=== PATIENT | female | born 1995 | race Caucasian/White ===

== ENCOUNTER 2016-09-06 00:42 | Inpatient (IN) | payer MEDICAID ==
[~2016-09-06] VITALS: Ht 160 cm; Wt 73.9 kg
[2016-09-06] MEDS ORDERED: SODIUM CHLORIDE 0.9% 1,000 ML IV ONE (01:00)
[2016-09-06] MEDS ORDERED: ONDANSETRON HCL 4 MG/2 ML VIAL IVP ONE (01:00)
[2016-09-06 01:06] LABS: BASOPHILS % (AUTO) 0.6 % (0.0-2.0); EOSINOPHILS % (AUTO) 0.2 % (1.0-6.0); HEMATOCRIT 41.1 % (36-46); HEMOGLOBIN 13.8 g/dL (12.0-16.0); LYMPHOCYTES # (AUTO) 2.8 K/uL (1.0-4.8); LYMPHOCYTES % (AUTO) 34.2 % (22.0-44.0); MEAN CORPUSCULAR HEMOGLOBIN 30.4 pg (26.0-34.0); MEAN CORPUSCULAR HGB CONC 33.6 G/dL (31.0-37.0); MEAN CORPUSCULAR VOLUME 90 fL (80-100); MONOCYTES # (AUTO) 0.4 K/uL (0.1-1.0); MONOCYTES % (AUTO) 4.9 % (2.0-9.0); NEUTROPHILS # (AUTO) 4.9 K/uL (1.8-7.7); NEUTROPHILS % (AUTO) 60.1 % (40.0-70.0); PLATELET COUNT (AUTO) 363 K/uL (150-450); RED BLOOD CELL COUNT(AUTO) 4.55 MIL/uL (4.00-5.20); RED CELL DISTRIBUTION WIDTH 12.2 % (11.5-14.5); WHITE BLOOD COUNT (AUTO) 8.2 K/uL (4.5-11.0)
[2016-09-06 01:14] LABS: ANION GAP 11 mmol/L (8-16); CALCIUM, TOTAL 8.7 mg/dL (8.8-10.5); CARBON DIOXIDE 27 mmol/L (22-29); CHLORIDE 104 mmol/L (98-107); CREATININE 0.73 mg/dL (0.60-1.30); GLOMERULAR FILTR. RATE CALC > 60 mL/min (>60); POTASSIUM 3.4 mmol/L (3.5-5.1); SODIUM SERUM 142 mmol/L (136-145); UREA NITROGEN, BLOOD 7 mg/dL (7-18)
[2016-09-06] MEDS ORDERED: LIDOCAINE HCL BUFFERED 1% 20 ML VIAL INJ ONE (01:15)
[2016-09-06 01:22] LABS: SALICYLATE < 2.8 mg/dL (2.8-20.0)
[2016-09-06 01:27] LABS: ACETAMINOPHEN 10 mcg/mL (10-30); ALANINE AMINOTRANSFERASE 22 U/L (12-78); ALBUMIN 4.2 g/dL (3.4-5.0); ASPARTATE AMINOTRANSFERASE 18 U/L (15-37); BILIRUBIN,TOTAL 0.4 mg/dL (0.1-1.0); TOTAL PROTEIN, SERUM 8.1 g/dL (6.4-8.2)
[2016-09-06] MEDS ORDERED: BACITRACIN 0.9 GM PACKET OINTMENT TP ONE (01:30)
[2016-09-06] MEDS ORDERED: POTASSIUM CHLORIDE 10% 40 MEQ/30 ML LIQUID UDCUP PO ONE (01:45)
[2016-09-06] MEDS ORDERED: ZOLPIDEM TARTRATE 10 MG TABLET PO PRN (02:15)
[2016-09-06] MEDS ORDERED: LORazepam 2 MG TABLET PO PRN (02:15)
[2016-09-06] MEDS ORDERED: HALOPERIDOL 5 MG TABLET PO PRN (02:15)
[2016-09-06 08:04] LABS: APPEARANCE,URINE CLEAR (CLEAR); GLUCOSE, URINE (UA) NEGATIVE (NEGATIVE); KETONES,URINE NEGATIVE (NEGATIVE); LEUKOCYTE ESTERASE ,URINE NEGATIVE (NEGATIVE); OCCULT BLOOD,URINE NEGATIVE (NEGATIVE); PH,URINE 5.5 (5.0-8.0); PROTEIN,URINE NEGATIVE (NEGATIVE)
[2016-09-06 08:05] LABS: ADD UA MICROSCOPIC NO
[2016-09-06 18:34] VITALS: BP 115/73
[2016-09-06] MEDS ORDERED: IBUPROFEN 400 MG TABLET PO PRN (19:45)
[2016-09-06] MEDS ORDERED: ACETAMINOPHEN 325 MG TABLET PO PRN (19:45)
[2016-09-07 05:29] LABS: HEMOGLOBIN A1C 5.3 % (4.5-6.2)
[2016-09-07 05:41] VITALS: BP 105/64
[2016-09-07 05:46] LABS: CHOL/HDL RATIO 2.4 (3.9-5.7); THYROID STIMULATING HORMONE 1.19 uIU/mL (0.36-3.74)
[2016-09-07 08:01] VITALS: BP 109/61
[2016-09-07 15:11] VITALS: BP 123/82
[2016-09-07 16:00] VITALS: BP 115/79
[2016-09-08 02:00] VITALS: BP 117/67
[2016-09-08 08:41] VITALS: BP 102/60
[2016-09-08] MEDS: BACITRACIN 28.4 GM OINTMENT TP SCH ×2 (09:38→18:13)
[2016-09-08] MEDS ORDERED: INFLUENZA VIRUS VACCINE QVS 2016-17 (3YR+)/PF 60 MCG/0.5 ML SYRINGE IM ONE (11:15)
[2016-09-08 16:10] VITALS: BP 124/86
[2016-09-09 02:10] VITALS: BP 105/65
[2016-09-09 08:34] VITALS: BP 115/64
[2016-09-09] MEDS: BACITRACIN 28.4 GM OINTMENT TP SCH ×2 (09:39→17:02)
[2016-09-09 16:35] VITALS: BP 117/67
[2016-09-10 03:24] VITALS: BP 102/60
[2016-09-10 08:32] VITALS: BP 117/73
[2016-09-10] MEDS: BACITRACIN 28.4 GM OINTMENT TP SCH (08:54)
== END 2016-09-10 10:30 | disposition home or self-care (01) | DRG 881 ==
LOC: EMS 00:42 → EDBD 00:42 → AHU 16:49 → EMS 17:02 → B2S 09-07 14:19
PROVIDERS: ADMIT Psychiatry & Neurology Psychiatry; ATTEND Psychiatry & Neurology Psychiatry
PROC: 0HQEXZZ Repair Left Lower Arm Skin, External Approach (ICD-10-PCS; principal; 2016-09-06)
DX: F32.9 Major depressive disorder, single episode, unspecified (principal); R45.851 Suicidal ideations; E87.6 Hypokalemia; X78.9XXA Intentional self-harm by unspecified sharp object, initial encounter; F10.129 Alcohol abuse with intoxication, unspecified; Y90.2 Blood alcohol level of 40-59 mg/100 ml; S61.512A Laceration without foreign body of left wrist, initial encounter; Y93.89 Activity, other specified; Y92.89 Other specified places as the place of occurrence of the external cause; Y99.8 Other external cause status; Z91.5 Personal history of self-harm; Z28.21 Immunization not carried out because of patient refusal
CPT/HCPCS: 12002; 83036; 84132; 84443; 93005; 96361; 96374; 99285; A0429; G0480; G0481; J2405; J3490; J7030

== ENCOUNTER 2018-10-16 23:55 | Inpatient (IN) | payer MEDICAID, OTHER ==
[~2018-10-16] VITALS: Ht 167.6 cm; Wt 85.5 kg
[2018-10-17] MEDS ORDERED: SODIUM CHLORIDE 0.9% 1,000 ML IV ONE ×3 (00:30→03:30)
[2018-10-17 00:37] LABS: BASOPHILS % (AUTO) 0.6 % (0.0-2.0); EOSINOPHILS % (AUTO) 0.4 % (1.0-6.0); HEMATOCRIT 39.2 % (36-46); HEMOGLOBIN 13.6 g/dL (12.0-16.0); LYMPHOCYTES # (AUTO) 2.5 K/uL (1.0-4.8); LYMPHOCYTES % (AUTO) 45.7 % (22.0-44.0); MEAN CORPUSCULAR HEMOGLOBIN 30.8 pg (26.0-34.0); MEAN CORPUSCULAR HGB CONC 34.7 G/dL (31.0-37.0); MEAN CORPUSCULAR VOLUME 89 fL (80-100); MONOCYTES # (AUTO) 0.3 K/uL (0.1-1.0); NEUTROPHILS # (AUTO) 2.6 K/uL (1.8-7.7); NEUTROPHILS % (AUTO) 47.3 % (40.0-70.0); PLATELET COUNT (AUTO) 361 K/uL (150-450); RED BLOOD CELL COUNT(AUTO) 4.42 MIL/uL (4.00-5.20); RED CELL DISTRIBUTION WIDTH 12.7 % (11.5-14.5)
[2018-10-17 00:49] LABS: ANION GAP 10 mmol/L (8-16); CALCIUM, TOTAL 8.6 mg/dL (8.8-10.5); CARBON DIOXIDE 25 mmol/L (22-29); CHLORIDE 103 mmol/L (98-107); CREATININE 0.71 mg/dL (0.60-1.30); GLOMERULAR FILTR. RATE CALC > 60 mL/min (>60); GLUCOSE,RANDOM 113 mg/dL (70-110); POTASSIUM 3.3 mmol/L (3.5-5.1); SODIUM SERUM 138 mmol/L (136-145); UREA NITROGEN, BLOOD 8 mg/dL (7-18)
[2018-10-17 01:00] LABS: ALANINE AMINOTRANSFERASE 16 U/L (12-78); ALBUMIN 3.9 g/dL (3.4-5.0); ALKALINE PHOSPHATASE 49 U/L (46-116); ASPARTATE AMINOTRANSFERASE 11 U/L (15-37); BILIRUBIN,TOTAL 0.4 mg/dL (0.1-1.0); HCG,QUANTITATIVE < 1 mIU/mL (0-6); TOTAL PROTEIN, SERUM 7.8 g/dL (6.4-8.2)
[2018-10-17 01:18] LABS: ACETAMINOPHEN 56 mcg/mL (10-30)
[2018-10-17 01:27] LABS: SALICYLATE 0.8 mg/dL (2.8-20.0)
[2018-10-17 01:28] LABS: AMPHET/METH SCREEN,URINE NEGATIVE (NEGATIVE); BARBITURATE SCREEN, URINE NEGATIVE (NEGATIVE); BENZODIAZEPINES SCREEN,URINE NEGATIVE (NEGATIVE); CANNABINOID SCREEN,URINE NEGATIVE (NEGATIVE); COCAINE SCREEN,URINE NEGATIVE (NEGATIVE); METHADONE SCREEN, URINE NEGATIVE (NEGATIVE); OPIATE SCREEN,URINE NEGATIVE (NEGATIVE); PHENCYCLIDINE SCREEN,URINE NEGATIVE (NEGATIVE)
[2018-10-17 01:55] LABS: APPEARANCE,URINE CLEAR (CLEAR); BILIRUBIN,URINE NEGATIVE (NEGATIVE); GLUCOSE, URINE (UA) NEGATIVE (NEGATIVE); KETONES,URINE NEGATIVE (NEGATIVE); LEUKOCYTE ESTERASE ,URINE NEGATIVE (NEGATIVE); NITRATE,URINE NEGATIVE (NEGATIVE); OCCULT BLOOD,URINE SMALL (NEGATIVE); PROTEIN,URINE NEGATIVE (NEGATIVE); UROBILINOGEN,URINE 0.2 mg/dL (<=1.0)
[2018-10-17 02:14] LABS: BACTERIA,URINE None Seen /HPF (None Seen); RBC,URINE 0-2 /HPF (0-2); SQUAMOUS EPITHELIAL CELL,UR Few /LPF (None Seen); WBC,URINE 0-2 /HPF (0-5)
[2018-10-17] MEDS ORDERED: HALOPERIDOL 5 MG TABLET PO PRN (06:15)
[2018-10-17] MEDS ORDERED: LORazepam 2 MG TABLET PO PRN (06:15)
[2018-10-17] MEDS ORDERED: ZOLPIDEM TARTRATE 10 MG TABLET PO PRN (06:15)
[2018-10-17] MEDS ORDERED: ACETAMINOPHEN 325 MG TABLET PO PRN (10:15)
[2018-10-17] MEDS ORDERED: CloNIDine HCL 0.1 MG TABLET PO PRN (10:15)
[2018-10-17] MEDS ORDERED: IBUPROFEN 400 MG TABLET PO PRN (10:15)
[2018-10-17] MEDS ORDERED: MAGNESIUM HYDROXIDE SUSPENSION 30 ML UDCUP PO PRN (10:15)
[2018-10-17] MEDS ORDERED: NICOTINE 14 MG/24 HOUR PATCH TD PRN (10:15)
[2018-10-17] MEDS ORDERED: ALBUTEROL SULFATE HFA 90 MCG/PUFF 8 GM INHALER IH PRN (10:15)
[2018-10-17] MEDS ORDERED: ONDANSETRON HCL 4 MG TABLET PO PRN (10:15)
[2018-10-17] MEDS ORDERED: GuaiFENesin/D-METHORPHAN [SUGAR-FREE] 200-20MG/10 ML SYRUP UDCUP PO PRN (10:15)
[2018-10-17] MEDS ORDERED: PETROLATUM,WHITE 71 GM JELLY TP PRN (10:15)
[2018-10-17] MEDS ORDERED: LOPERAMIDE HCL 2 MG CAPSULE PO PRN (10:15)
[2018-10-17] MEDS ORDERED: MAG HYDROX/AL HYDROX/SIMETH ES 30 ML SUSPENSION UDCUP PO PRN (10:15)
[2018-10-17] MEDS ORDERED: DOCUSATE SODIUM 100 MG CAPSULE PO PRN (10:15)
[2018-10-17 14:01] VITALS: BP 124/91
[2018-10-17 14:23] VITALS: BP 124/91
[2018-10-17 16:00] VITALS: BP 113/69
[2018-10-17 16:22] VITALS: BP 113/69
[2018-10-17 16:41] VITALS: BP 113/69
[2018-10-17] MEDS ORDERED: POTASSIUM CHLORIDE 20 MEQ ER TABLET PO ONE (16:45)
[2018-10-17 20:05] VITALS: BP 121/73
[2018-10-17] MEDS: SERTRALINE HCL 50 MG TABLET PO SCH (21:00)
[2018-10-18] VITALS (7 sets, daily range): BP systolic 106–123; BP diastolic 70–84
[2018-10-18] MEDS: BACITRACIN 28.4 GM OINTMENT TP SCH ×2 (08:46→17:05)
[2018-10-18 08:50] LABS: HEMOGLOBIN A1C 5.4 % (4.5-6.2)
[2018-10-18 09:17] LABS: CHOL/HDL RATIO 3.1 (3.9-5.7); POTASSIUM 4.5 mmol/L (3.5-5.1); THYROID STIMULATING HORMONE 3.07 uIU/mL (0.36-3.74)
[2018-10-18] MEDS: SERTRALINE HCL 50 MG TABLET PO SCH (20:43)
[2018-10-19 06:25] VITALS: BP 108/65
[2018-10-19] MEDS: BACITRACIN 28.4 GM OINTMENT TP SCH ×2 (08:09→16:46)
[2018-10-19 08:32] VITALS: BP 110/54
[2018-10-19 16:00] VITALS: BP 100/59
[2018-10-19 16:33] VITALS: BP 100/59
[2018-10-19] MEDS: SERTRALINE HCL 50 MG TABLET PO SCH (20:09)
[2018-10-20 00:07] VITALS: BP 99/60
[2018-10-20 00:09] VITALS: BP 99/60
[2018-10-20 08:37] VITALS: BP 124/76
[2018-10-20] MEDS: BACITRACIN 28.4 GM OINTMENT TP SCH (09:11)
[2018-10-20] MEDS ORDERED: SERT50TA12 PO (10:51)
== END 2018-10-20 12:45 | disposition home or self-care (01) | DRG 751 ==
LOC: EMS 23:55 → B3A 10-17 05:55
PROVIDERS: ADMIT Psychiatry & Neurology Psychiatry; ATTEND Psychiatry & Neurology Psychiatry
DX: F33.2 Major depressive disorder, recurrent severe without psychotic features (principal); R45.851 Suicidal ideations; Z91.19 Patient's noncompliance with other medical treatment and regimen; F41.9 Anxiety disorder, unspecified; R45.87 Impulsiveness; R10.13 Epigastric pain; E87.6 Hypokalemia; T50.902A Poisoning by unspecified drugs, medicaments and biological substances, intentional self-harm, initial encounter; F99 Mental disorder, not otherwise specified; F43.10 Post-traumatic stress disorder, unspecified; Z91.5 Personal history of self-harm; Z91.410 Personal history of adult physical and sexual abuse
CPT/HCPCS: 83036; 84132; 84443; 93005; G0480; G0481; J7030